=== PATIENT | male | born 1965 | race Caucasian/White ===

== ENCOUNTER 2016-09-09 12:51 | Outpatient (CLI) | payer MEDICAID | END 2016-09-09 12:52 | disposition short-term general hospital (02) | DX: M25.571 Pain in right ankle and joints of right foot (principal); M25.511 Pain in right shoulder; R07.81 Pleurodynia; M54.6 Pain in thoracic spine; V28.4XXA Motorcycle driver injured in noncollision transport accident in traffic accident, initial encounter; Y92.414 Local residential or business street as the place of occurrence of the external cause | CPT/HCPCS: A0170; A0425; A0427 ==

== ENCOUNTER 2019-04-10 22:21 | Emergency (ER) | payer MEDICAID ==
--- NOTE | 2019-04-10 22:44 | ED Physician Documentation ---
PD HPI LOWER EXT INJURY - Stated complaint Stated Complaint: L LEG PX - Chief complaint Chief Complaint: Ext Problem - History obtained from History obtained from: Patient - History of Present Illness PD HPI LOW EXT INJURY LOCATION: Left, Ankle Type of injury: Fall Where injury occurred: Other (off of rocks about 3-4 feet) Timing - onset: How many hours ago (3-4) Timing - duration: Hours (4) Timing - details: Gradual onset Pain level max: 7 Pain level now: 7 Improved by: Rest, Ice, Immobilization Worsened by: Moving, Palpating Associated symptoms: No: Weakness, Numbness, Tingling, Swelling Contributing factors: No: Anticoagulated Similar symptoms before: Has not had sx before Recently seen: Not recently seen Review of Systems Constitutional: denies: Fever, Chills Nose: denies: Rhinorrhea / runny nose, Congestion GI: denies: Nausea, Vomiting, Diarrhea Skin: denies: Rash Musculoskeletal: denies: Neck pain, Back pain Neurologic: denies: Headache, Head injury, LOC PD PAST MEDICAL HISTORY - Past Medical History Past Medical History: No - Past Surgical History Past Surgical History: Yes - Present Medications Home Medications: Ambulatory Orders Medication Instructions Recorded Confirmed Ibuprofen [Motrin] 800 mg PO Q8H PRN #30 tablet 04/10/19 - Allergies Allergies/Adverse Reactions: Allergies Allergy/AdvReac Type Severity Reaction Status Date / Time No Known Drug Allergies Allergy Verified 04/10/19 22:26 - Social History Does the pt smoke?: Yes Smoking Status: Current every day smoker Does the pt drink ETOH?: No Does the pt have substance abuse?: No Substance Use and Type: Marijuana - Immunizations Immunizations are current?: Yes - POLST Patient has POLST: No PD ED PE NORMAL - Vitals Vital signs reviewed: Yes - General General: Alert and oriented X 3, No acute distress - HEENT HEENT: Moist mucous membranes - Derm Derm: Warm and dry - Extremities Extremities: Other (L ankle - TTP lateral and medial malleolus. NVI. no swelling. No tenderness over the remainder of the foot or tib/fib) - Neuro Neuro: Alert and oriented X 3 Results - Vitals Vitals: Vital Signs - 24 hr 04/10/19 22:26 Temperature 36.6 C Heart Rate 88 Respiratory 18 Rate Blood Pressure 150/111 H O2 Saturation 96 Oxygen O2 Source Room air - Rads (name of study) L ankle xray Radiology: Prelim report reviewed, EMP read contemporaneously, See rad report (No acute fracture or dislocation.) PD MEDICAL DECISION MAKING - ED course Complexity details: reviewed results, re-evaluated patient, considered differential, d/w patient ED course: Patient appears to have an ankle sprain. Placed in an Aircast and on crutches. Given Motrin for pain. He will follow-up with his doctor for further care. Patient counseled regarding signs and symptoms for which I believe and urgent re-evaluation would be necessary. Patient with good understanding of and agreement to plan and is comfortable going home at this time This document was made in part using voice recognition software. While efforts are made to proofread this document, sound alike and grammatical errors may occur. Departure - Departure Disposition: 01 Home, Self Care Clinical Impression: Left ankle sprain Qualifiers: Encounter type: initial encounter Involved ligament of ankle: unspecified ligament Qualified Code(s): S93.402A - Sprain of unspecified ligament of left ankle, initial encounter Condition: Good Instructions: ED Sprain Ankle W X Ray Follow-Up: Astrid Mcnair ARNP [Primary Care Provider] - Prescriptions: Ibuprofen [Motrin] 800 mg PO Q8H PRN #30 tablet PRN Reason: PAIN &/OR FEVER Comments: Follow-up with your doctor for further care. This should improve over the next week or so. Use the brace to help stabilize the area. Use crutches to help you walk. You may bear weight as tolerated.
--- NOTE | 2019-04-10 23:16 | XRAY Report ---
Reason: L ankle pain s/p fall Procedure Date: 04/10/2019 Accession Number: [id number] / [id number] Procedure: XR - Ankle 3 View LT CPT Code: Final Report FULL RESULT: EXAM: LEFT ANKLE RADIOGRAPHY EXAM DATE: 04/10/2019 10:56 PM. CLINICAL HISTORY: L ankle pain s/p fall. COMPARISON: None. TECHNIQUE: 3 views. FINDINGS: Bones: No fracture seen. Joints: No dislocation. Ankle mortise appears intact. Small joint effusion. Soft Tissues: Soft tissue swelling. IMPRESSION: 1. No acute fracture or dislocation seen. 2. Soft tissue swelling and small joint effusion. RADIA
[2019-04-10] MEDS ORDERED: IBUPROFEN 800 MG TABLET PO STA (23:31)
[2019-04-10 23:51] VITALS: BP 140/90
== END 2019-04-10 23:49 | disposition home or self-care (01) ==
LOC: ED 22:21
DX: S93.402A Sprain of unspecified ligament of left ankle, initial encounter (principal); W17.89XA Other fall from one level to another, initial encounter
CPT/HCPCS: 73610; 99283; 99284; A9270

== ENCOUNTER 2022-05-14 08:39 | Outpatient (CLI) | payer MEDICAID | END 2022-05-14 23:59 | disposition short-term general hospital (02) | LOC: EMS 08:39 | DX: R29.810 Facial weakness (principal); R47.1 Dysarthria and anarthria; W86.8XXA Exposure to other electric current, initial encounter; Y93.89 Activity, other specified; Y92.009 Unspecified place in unspecified non-institutional (private) residence as the place of occurrence of the external cause | CPT/HCPCS: A0425; A0429; A0999 ==

== ENCOUNTER 2022-06-30 14:09 | Outpatient (CLI) | payer MEDICAID ==
[2022-06-30] MEDS ORDERED: iohexoL-300 100 ML VIAL ONE (14:48)
[2022-06-30] MEDS ORDERED: iohexoL-300 100 ML VIAL IVP ONE (15:31)
--- NOTE | 2022-06-30 16:20 | CT Report ---
PROCEDURE: ANGIO HEAD W/WO INDICATIONS: CVA CONTRAST: 80ml Omnipaque 300 TECHNIQUE: Precontrast 4.5 mm thick angled axial sections acquired from the foramen magnum to the vertex. Afte r the administration of intravenous contrast, 1 mm thick sections acquired through the [place] of [place] is. Postcontrast 4.5 mm thick sections then re-acquired from the foramen magnum to the vertex. 3-di mensional mwrwxqo-nmxzuhrvu-whxiclhyxa (MIP) and/or volume rendering reformats were acquired of the c entral intracranial vasculature. For radiation dose reduction, the following was used: automated ex posure control, adjustment of mA and/or kV according to patient size. COMPARISON: CTA neck 06/30/2022 FINDINGS: Image quality: Excellent. Anterior circulation: Intracranial internal carotid arteries are normal in size and flow. The flow within the paired anterior cerebral arteries is normal and symmetric. The flow within the middle cer ebral arteries is normal and symmetric. The anterior communicating artery is seen. No aneurysms are seen. Posterior circulation: There is a vertebral artery codominant. Visualized portions of the vertebral arteries demonstrate normal caliber, and join to form a normal appearing basilar artery. Flow within the posterior cerebral arteries is normal and symmetric. No aneurysms are seen. 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 CSF spaces: Ventricles are normal in size and shape. Basal cisterns are patent. No extra-axial flu id collections. Brain: No midline shift. No intracranial bleeds or masses. There is hypoattenuation identified wit hin the frontal lobes bilaterally. Rees-white matter interface appears intact. Skull and face: Calvarium and facial bones appear intact, without suspicious lesions. Sinuses: Visualized sinuses and mastoids are clear. IMPRESSION: Foci of decreased attenuation within the frontal lobes bilaterally. These could represent areas of pr ior ischemia. As clinically indicated, further evaluation with MRI may be obtained. No areas of hemodynamically significant stenosis, vascular occlusion or aneurysmal dilation within th e anterior circulation. No areas of hemodynamically significant stenosis, vascular occlusion or aneurysmal dilation within th e posterior circulation. Reviewed by: Freda Perkins MD on 06/30/2022 4:19 PM PST Approved by: Freda Perkins MD on 06/30/2022 4:19 PM PST Station ID: [id number]
--- NOTE | 2022-06-30 16:22 | CT Report ---
PROCEDURE: ANGIO NECK W INDICATIONS: CVA CONTRAST: 80ml OMnipaque 300 TECHNIQUE: After the administration of intravenous contrast, 1.5 mm axial sections acquired from the aortic arch to the [place] of [place]. Coronal 3-D maximum intensity projection (MIP) and/or volume rendering ref ormats were then performed. For radiation dose reduction, the following was used: automated exposur e control, adjustment of mA and/or kV according to patient size. COMPARISON: CTA head 06/30/2022 FINDINGS: Image quality: Excellent. Carotid system: The great vessels demonstrate a conventional anatomy as they arise from the aortic a rch. The origins of the common carotid arteries appear patent. The common carotid arteries demonstr ate normal calibers and courses. The bifurcation regions appear normal bilaterally. The internal ca rotid arteries demonstrate normal caliber and course. Posterior circulation: The origins of the vertebral arteries appear patent. The more superior porti ons of the vertebral arteries demonstrate normal course and caliber. They join to form a normal appe aring basilar artery. Soft tissues: Visualized neck soft tissues demonstrate no suspicious abnormalities. The thyroid is normal in size and there are no incidental findings. Bones: No suspicious bony lesions. Visualized cervical spine appears normally aligned. IMPRESSION: There are no areas of hemodynamically significant stenosis, vascular occlusion or aneurysmal dilation within the neck vasculature. The estimate of stenosis included in the report of the imaging study was calculated using the NASCET method CLINICAL RECOMMENDATION STATEMENTS: In patients <35 years with an ITN detected on CT, MRI, or extrathyroidal ultrasound, the Committee re commends further evaluation with dedicated thyroid ultrasound if the nodule is "e1 cm and has no susp icious imaging features, and if the patient has normal life expectancy. In patients "e35 years with an ITN detected on CT, MRI, or extrathyroidal ultrasound, the Committee r ecommends further evaluation with dedicated thyroid ultrasound if the nodule is "e1.5 cm and has no s uspicious imaging features, and if the patient has normal life expectancy. (ACR, 2014) Reviewed by: Freda Perkins MD on 06/30/2022 4:20 PM PST Approved by: Freda Perkins MD on 06/30/2022 4:20 PM PST Station ID: [id number]
== END 2022-06-30 14:10 | disposition home or self-care (01) ==
LOC: DI 14:09
PROVIDERS: ATTEND Psychiatry & Neurology Neurology
DX: I63.9 Cerebral infarction, unspecified (principal)
CPT/HCPCS: 70496; 70498; Q9967

== ENCOUNTER 2022-09-09 10:04 | Outpatient (CLI) | payer MEDICAID ==
[2022-09-09 14:25] LABS: BASOPHILS % (AUTO) 0.6 %; EOSINOPHILS # (AUTO) 0.1 10^3/uL (0.0-0.7); EOSINOPHILS % (AUTO) 1.9 %; HCT - HEMATOCRIT 43.3 % (42.0-52.0); HGB - HEMOGLOBIN 14.2 g/dL (14.0-18.0); LYMPHOCYTES # (AUTO) 1.9 10^3/uL (1.5-3.5); LYMPHOCYTES % (AUTO) 29.2 %; MEAN CORPUSCULAR HEMOGLOBIN 28.2 pg (27.0-31.0); MEAN CORPUSCULAR HGB CONC 32.8 g/dL (32.0-36.0); MEAN CORPUSCULAR VOLUME 85.9 fL (80.0-94.0); MEAN PLATELET VOLUME 11.3 fL (7.4-11.4); MONOCYTES # (AUTO) 0.5 10^3/uL (0.0-1.0); MONOCYTES % (AUTO) 7.5 %; NEUTROPHILS # (AUTO) 3.9 10^3/uL (1.5-6.6); NEUTROPHILS % (AUTO) 60.5 %; PLT - PLATELET COUNT 237 10^3/uL (130-450); RED BLOOD COUNT 5.04 10^6/uL (4.70-6.10); RED CELL DISTRIBUTION WIDTH 13.5 % (12.0-15.0); WHITE BLOOD COUNT 6.4 x10^3/uL (4.8-10.8)
[2022-09-09 15:26] LABS: THYROID STIMULATING HORMONE 0.8 uIU/mL (0.34-5.60)
[2022-09-09 15:28] LABS: ALBUMIN 4.1 g/dL (3.2-5.5); ALBUMIN/GLOBULIN RATIO 1.4 (1.0-2.2); ALKALINE PHOSPHATASE 74 IU/L (42-121); ALT ALANINE AMINOTRANSFERASE 48 IU/L (10-60); AST ASPARTATE AMINOTRANSFERASE 35 IU/L (10-42); BILIRUBIN,TOTAL 0.8 mg/dL (0.2-1.0); BUN - BLOOD UREA NITROGEN 16 mg/dL (6-20); CALCIUM 8.9 mg/dL (8.5-10.3); CARBON DIOXIDE - CO2 27 mmol/L (21-32); CHLORIDE 110 mmol/L (101-111); CHOL/HDL RATIO 2.3 (<5.0); CHOLESTEROL 118 mg/dL; CREATININE 0.9 mg/dL (0.6-1.2); GFR - MDRD 87 (>89); GLUCOSE 116 mg/dL (70-100); HDL CHOLESTEROL 51 mg/dL; LDL CHOLESTEROL,CALCULATED 59 mg/dL; LDL/HDL RATIO 1.2 (<3.6); POTASSIUM 4.2 mmol/L (3.5-5.0); SODIUM 141 mmol/L (135-145); TRIGLYCERIDES 40 mg/dL; VLDL CHOLESTEROL 8 mg/dL
[2022-09-09 21:01] LABS: ESTIMATED AVERAGE GLUCOSE 126 mg/dL (70-100)
== END 2022-09-09 10:05 | disposition home or self-care (01) ==
LOC: LAB.S 10:04
PROVIDERS: ATTEND Nurse Practitioner Acute Care
DX: R53.83 Other fatigue (principal); Z13.228 Encounter for screening for other metabolic disorders; Z13.220 Encounter for screening for lipoid disorders; Z13.1 Encounter for screening for diabetes mellitus; Z13.29 Encounter for screening for other suspected endocrine disorder; Z13.0 Encounter for screening for diseases of the blood and blood-forming organs and certain disorders involving the immune mechanism
CPT/HCPCS: 36415; 80050; 80061; 82306; 83036; 83721

== ENCOUNTER 2022-10-21 09:38 | Outpatient (CLI) | payer MEDICAID | END 2022-10-21 09:39 | disposition home or self-care (01) | LOC: RT 09:38 | PROVIDERS: ATTEND Nurse Practitioner Acute Care | DX: J45.909 Unspecified asthma, uncomplicated (principal); F17.200 Nicotine dependence, unspecified, uncomplicated | CPT/HCPCS: 94010 ==

== ENCOUNTER 2022-12-19 11:55 | Day surgery (SDC) | payer MEDICAID ==
[~2022-12-19 11:55] MED LIST: PROPOFOL 500 MG/50 ML 500 MG/50 ML VIAL ONE
[2022-12-19] MEDS ORDERED: LACTATED RINGERS 1,000 ML IV ONE ×2 (12:15→14:17)
--- NOTE | 2022-12-19 13:11 | ANESTHESIA ---
Pre-Anesthesia VS, & Labs - Diagnosis screening - Procedure colonoscopy Vital Signs: Temp Pulse Resp BP Pulse Ox O2 Flow Rate 36 C L 58 L 18 142/86 H 94 12/19/22 12:04 12/19/22 12:04 12/19/22 12:04 12/19/22 12:04 12/19/22 12:04 Height: 5 ft 9 in Weight (kg): 82 kg Body Mass Index: 26.6 BMI Classification: Overweight - NPO >8 hours Home Medications and Allergies Home Medications: Ambulatory Orders Levothyroxine [Synthroid] 25 mcg PO DAILY 12/17/22 Albuterol Sulf [Ventolin Hfa Inhaler] 1 - 2 puffs INH Q4HR PRN 11/07/22 Aspirin [Aspirin EC] 81 mg PO DAILY 11/07/22 Atorvastatin Calcium [Lipitor] 80 mg PO QPM 11/07/22 Fluticasone/Salmeterol [Advair 250-50 Diskus] 1 each IH BID 11/07/22 amLODIPine [Norvasc] 5 mg PO DAILY 11/07/22 Levothyroxine [Synthroid] 25 mcg PO DAILY 12/17/22 Allergies/Adverse Reactions: Allergies Allergy/AdvReac Type Severity Reaction Status Date / Time Penicillins Allergy Hives Verified 11/07/22 12:51 Anes History & Medical History - Anesthetic History Anesthesia Complications: reports: No previous complications Family history of Anesthesia Complications: Denies Family history of Malignant Hyperthermia: Denies - Medical History Cardiovascular: reports: Congestive heart failure, Hypertension, High cholesterol, [place], Other (PFO, not repaired) Pulmonary: reports: None, Other (smoker >40 pk yrs) Gastrointestinal: reports: Chronic diarrhea, Other Urinary: reports: None Neuro: reports: CVA, Other (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 ambulates without assisstance) Musculoskeletal: reports: Other Endocrine/Autoimmune: reports: None Skin: reports: None Smoking Status: Current every day smoker Psychosocial: reports: Substance abuse, Cocaine (quit 05/29, 40 yr history), Methadone (quit 05/29, 40 yr history) - Surgical History Orthopedic: reports: Other Exam General: Alert, Oriented x3, Cooperative Dental: Poor dentition Mouth Openin Fingerbreadth Neck Mobility: Normal Mallampati classification: II Thyromental Distance: 4-6 cm Respiratory: Lungs clear Cardiovascular: Regular rate Plan Anesthesia Type: Total IV Consent for Procedure(s) Verified and Reviewed: Yes Code Status: Attempt Resuscitation ASA classification: 3-Severe systemic disease Is this case an emergency?: No
--- NOTE | 2022-12-19 13:19 | HISTORY & PHYSICAL EXAMINATION ---
Chief Complaint - Chief Complaint Chief Complaint: here for colonoscopy History of Present Illness - History Obtained From Records Reviewed: yes History obtained from: pt Exam Limitations: none - History of Present Illness HPI Comment/Other: here for screening colonoscopy. 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 ambulates without assisstance) Endocrine/Autoimmune: reports: None GI: reports: Chronic diarrhea, Other : reports: None HEENT: reports: Chronic vision loss, Chronic hearing loss Psych: reports: None Musculoskeletal: reports: Other Derm: reports: None MRSA Hx?: No - Past Surgical History Ortho: reports: Other - POLST Patient has POLST: No Meds/Allgy - Home Medications Home Medications: Ambulatory Orders Medication Instructions Recorded Confirmed Albuterol Sulf [Ventolin Hfa 1 - 2 puffs INH Q4HR PRN 11/07/22 12/08/22 Inhaler] Aspirin [Aspirin EC] 81 mg PO DAILY 11/07/22 12/08/22 Atorvastatin Calcium [Lipitor] 80 mg PO QPM 11/07/22 12/08/22 Fluticasone/Salmeterol [Advair 1 each IH BID 11/07/22 12/08/22 250-50 Diskus] amLODIPine [Norvasc] 5 mg PO DAILY 11/07/22 12/08/22 Levothyroxine [Synthroid] 25 mcg PO DAILY 12/17/22 12/17/22 - Allergies Allergies/Adverse Reactions: Allergies Allergy/AdvReac Type Severity Reaction Status Date / Time Penicillins Allergy Hives Verified 11/07/22 12:51 Review of Systems - Other Findings Other Findings: 10 pt ros as above otherwise unremarkable Exam - Vital Signs Vital Signs: Vital Signs x48h Temp Pulse Resp BP Pulse Ox 12/19/22 12:04 36 C L 58 L 18 142/86 H 94 - Physical Exam General Appearance: positive: No acute distress, Alert Eyes Bilateral: positive: PERRL, EOMI ENT: positive: No signs of dehydration Neck: positive: No JVD, Trachea midline Respiratory: positive: No respiratory distress, Breath sounds nml Cardiovascular: positive: Regular rate & rhythm Abdomen: positive: Non-tender, No distention Neurologic/Psychiatric: positive: Oriented x3 Conclusion/Plan - Problem List (1) Colon cancer screening Conclusion/Plan: plan colonoscopy. parq held and consent obtained
[2022-12-19] MEDS ORDERED: PROPOFOL 500 MG/50 ML 500 MG/50 ML VIAL ONE (14:00)
[2022-12-19 14:44] VITALS: BP 109/79
== END 2022-12-19 11:56 | disposition home or self-care (01) ==
LOC: SDS 11:55
PROVIDERS: ATTEND Surgery
PROC: 0DBL8ZZ Excision of Transverse Colon, Via Natural or Artificial Opening Endoscopic (ICD-10-PCS; 2022-12-19)
PROC: 0DBN8ZZ Excision of Sigmoid Colon, Via Natural or Artificial Opening Endoscopic (ICD-10-PCS; 2022-12-19)
PROC: 0DBP8ZZ Excision of Rectum, Via Natural or Artificial Opening Endoscopic (ICD-10-PCS; 2022-12-19)
PROC: 0DBH8ZZ Excision of Cecum, Via Natural or Artificial Opening Endoscopic (ICD-10-PCS; principal; 2022-12-19 13:15)
DX: Z12.11 Encounter for screening for malignant neoplasm of colon (principal); D12.8 Benign neoplasm of rectum; D12.3 Benign neoplasm of transverse colon; D12.5 Benign neoplasm of sigmoid colon; D12.0 Benign neoplasm of cecum; K57.30 Diverticulosis of large intestine without perforation or abscess without bleeding; F17.200 Nicotine dependence, unspecified, uncomplicated; I25.2 Old myocardial infarction; I69.354 Hemiplegia and hemiparesis following cerebral infarction affecting left non-dominant side; I69.392 Facial weakness following cerebral infarction; I69.328 Other speech and language deficits following cerebral infarction; I69.398 Other sequelae of cerebral infarction; I11.0 Hypertensive heart disease with heart failure; I50.9 Heart failure, unspecified; R20.0 Anesthesia of skin
CPT/HCPCS: 45380; 45385; J7120

== ENCOUNTER 2023-01-09 10:20 | Outpatient (CLI) | payer MEDICAID ==
--- NOTE | 2023-01-09 21:41 | XRAY Report ---
PROCEDURE: Tib/Fib RT INDICATIONS: LEG PAIN TECHNIQUE: 2 views of the tibia and fibula were acquired. COMPARISON: None. FINDINGS: Bones: No acute fracture. There are chronic appearing, smooth callus deformities of comminuted, subs equently healed fractures of the mid and distal fibula, and distal tibia. There is a tibial intramedu llary mariah fixed by proximal and distal screws. There is no surrounding lucency to suggest screw displ acement. No hardware fracture. Soft tissues: No suspicious soft tissue calcifications or masses. IMPRESSION: 1. No acute osseous or hardware fracture. 2. Healed deformity of prior distal tibial and fibular fractures. Reviewed by: Stephanie Contreras MD on 01/09/2023 9:40 PM PDT Approved by: Stephanie Contreras MD on 01/09/2023 9:40 PM PDT Station ID: [id number]
== END 2023-01-09 10:21 | disposition home or self-care (01) ==
LOC: DI 10:20
PROVIDERS: ATTEND Physician Assistant Surgical
DX: S82.251D Displaced comminuted fracture of shaft of right tibia, subsequent encounter for closed fracture with routine healing (principal); S82.451D Displaced comminuted fracture of shaft of right fibula, subsequent encounter for closed fracture with routine healing